=== PATIENT | male | born 1940 | race Caucasian/White ===

== ENCOUNTER 2017-09-01 09:23 | Day surgery (SDC) ==
[2017-09-01 09:47] VITALS: TEMP 97.8
[2017-09-01] MEDS ORDERED: LIDOCAINE 1% 20 ML MDV ID STA (09:47)
[2017-09-01] MEDS ORDERED: VERSED ONE (11:11)
[2017-09-01] MEDS ORDERED: DIPRIVAN 20 ML VIAL IVP ONE (11:11)
[2017-09-01 11:59] VITALS: BP 135/57
--- NOTE | 2017-09-02 12:50 | OP ---
INDICATIONS FOR PROCEDURE: 77-year-old gentleman presents for surveillance colonoscopy. He has a history of ulcerative colitis greater than 25 years he states. He is asymptomatic at this time. MEDICATIONS: SEE ANESTHESIA NOTES. PROCEDURE: COLONOSCOPY, BIOPSY, SNARE POLYPECTOMY. REPORT: The risks, benefits, alternatives and limitations were discussed in detail with the patient. Informed consent was obtained. After adequate sedation was achieved, a digital rectal exam revealed good tone, no masses. The colonoscope was introduced into the rectum and advanced under direct visual guidance to the cecum. The cecum was identified by the appendiceal orifice and IC valve. He does have a long redundent colon. I then slowly withdrew the scope in a circumferential manner examining the mucosa quite carefully. I looked on the proximal and distal side of folds and flexures as best as possible. I was able to retroflex the scope in the right colon and the left colon to increase visualization. The colonic mucosa was unremarkable its entire length all the way down to the distal sigmoid area. From roughly 27 cm to 25/24 cm there is a small patch of active inflammation. There were a few aphthous ulcers present along with some mild erythema. This is very minimal disease activity. This area was biopsied. On retroflex view of the anal canal there was 1 to 2+ internal hemorrhoids. Also in the distal rectum there is a semi pedunculated 7 or 8 mm polyp; I removed this by snare technique. While withdrawing the scope, I obtained surveillance biopsies from the cecum, mid transverse colon, descending colon 30 cm, 20 cm and throughout the rectum. I also obtained biopsies from the active inflammation at 25 cm. The patient tolerated the procedure well with stable vital signs and pulse oximetry throughout. His prep was good. The withdrawal time was 18 minutes and 30 seconds. IMPRESSION: 1. MINIMAL ACTIVE INFLAMMATION IN A 2 TO 3 CM SEGMENT IN THE SIGMOID COLON DESCRIBED ABOVE. 2. SMALL RECTAL POLYP REMOVED. 3. 1 TO 2+ INTERNAL HEMORRHOIDS. RECOMMENDATIONS: 1. High fiber diet. 2. I am going to have him continue his same medication. 3. Will await pathology results. 4. Repeat colonoscopy no later than two years for surveillance. 5. Will see him back in the office for his annual checkup and sooner if he should develop any signs or symptoms. ADDENDUM: The patient did have a small AVM in the cecum. CC: DR. OVIDIO LIRA
== END 2017-09-01 12:30 | disposition home or self-care (01) ==
LOC: SURG 09:23
PROVIDERS: ATTEND Internal Medicine Gastroenterology
DX: K51.90 Ulcerative colitis, unspecified, without complications (principal); K63.5 Polyp of colon; K64.0 First degree hemorrhoids; Q27.33 Arteriovenous malformation of digestive system vessel; Z09 Encounter for follow-up examination after completed treatment for conditions other than malignant neoplasm